=== PATIENT | male | born 1975 | race Caucasian/White ===

== ENCOUNTER → 2019-07-04 | Outpatient (CLI) | payer OTHER, SELFPAY ==
[2019-07-04 09:46] LABS: AST(SGOT) 18 U/L (15-37); Alanine Aminotransfer ALT/SGPT 36 U/L (16-61); Albumin, Serum 3.8 g/dL (3.2-5.0); Alkaline Phosphatase 74 U/L (45-117); Anion Gap 6 (5-15); BUN 18 mg/dL (7-18); BUN/Creat Ratio 18.1 RATIO (10-20); Calcium,Total 8.9 mg/dL (8.5-10.1); Chloride 109 mmol/L (98-107); Cholesterol 199 mg/dL (200); Creatinine, Serum 0.99 mg/dL (0.70-1.30); EST Glomerular Filtration Rate 86 mL/min (>60); Est Glom Filt Rate - Afr Amer 105 mL/min (>60); Globulin 3.9 g/dL (2.2-4.2); Glucose 95 mg/dL (74-106); High Density Lipoprotein 40 mg/dL; Potassium 4.4 mmol/L (3.5-5.1); Protein, Total 7.7 g/dL (6.4-8.2); Sodium Level 141 mmol/L (136-145); Triglycerides 251 mg/dL; Very Low Density Lipoprotein 50 mg/dL (5-40)
== END | disposition home or self-care (01) ==
LOC: LAB 08:25
PROVIDERS: Family Provider Family Medicine; PCP Family Medicine; Referring Provider Family Medicine; Visit Provider Family Medicine
DX: Z00.00 Encounter for general adult medical examination without abnormal findings (principal)
CPT/HCPCS: 36415; 80053; 80061

== ENCOUNTER → 2019-08-08 09:33 | Outpatient (CLI) | payer OTHER, SELFPAY ==
--- NOTE | 2019-08-08 09:40 | RAD_ITS ---
HISTORY:HEEL PAIN Calcaneus 2 views No priors Findings: No acute fracture. Small enthesophyte at the insertion of the Achilles tendon on the calcaneus RAD/Calcaneus min 2 Views IMPRESSION: No acute pathology at 0137 Reported and signed by: Sara Rahman DO Electronically Signed: Sara Rahman DO at 1:36 EDT Tel , Service support ,
== END ==
PROVIDERS: Family Provider Family Medicine; PCP Family Medicine; Referring Provider Family Medicine; Visit Provider Family Medicine
DX: M79.672 Pain in left foot (principal)
CPT/HCPCS: 73650

== ENCOUNTER → 2021-10-19 12:32 | Outpatient (CLI) | payer OTHER, SELFPAY | PROVIDERS: PCP Family Medicine; Referring Provider Family Medicine; Visit Provider Family Medicine | DX: G47.10 Hypersomnia, unspecified (principal) | CPT/HCPCS: 95806 ==

== ENCOUNTER 2021-12-04 09:00 | Outpatient (CLI) | payer OTHER, SELFPAY | END 2021-12-04 23:59 | disposition short-term general hospital (02) | LOC: SL 09:00 | PROVIDERS: PCP Family Medicine; Visit Provider Family Medicine | DX: Z00.00 Encounter for general adult medical examination without abnormal findings (principal) ==

== ENCOUNTER 2022-10-06 09:20 | Outpatient (CLI) | payer BC, SELFPAY ==
[2022-10-06 10:05] LABS: ALB/GLOB Ratio 0.9 RATIO (0.9-2.4); AST(SGOT) 43 U/L (15-37); Alanine Aminotransfer ALT/SGPT 62 U/L (16-61); Albumin, Serum 3.7 g/dL (3.2-5.0); Alkaline Phosphatase 63 U/L (45-117); Anion Gap 3 (5-15); BUN 16 mg/dL (7-18); BUN/Creat Ratio 14.3 RATIO (10-20); Calcium,Total 9.5 mg/dL (8.5-10.1); Chloride 106 mmol/L (98-107); Cholesterol 192 mg/dL (200); Creatinine, Serum 1.12 mg/dL (0.70-1.30); EST Glomerular Filtration Rate 74 mL/min (>60); Est Glom Filt Rate - Afr Amer 90 mL/min (>60); Globulin 4.1 g/dL (2.2-4.2); Glucose 119 mg/dL (74-106); High Density Lipoprotein 38 mg/dL; Potassium 4.9 mmol/L (3.5-5.1); Protein, Total 7.8 g/dL (6.4-8.2); Sodium Level 139 mmol/L (136-145); Triglycerides 331 mg/dL; Very Low Density Lipoprotein 66 mg/dL (5-40)
== END 2022-10-06 23:59 | disposition home or self-care (01) ==
LOC: LAB 09:23
PROVIDERS: PCP Family Medicine; Referring Provider Family Medicine; Visit Provider Family Medicine
DX: Z00.00 Encounter for general adult medical examination without abnormal findings (principal)
CPT/HCPCS: 36415; 80053; 80061

== ENCOUNTER → 2022-11-21 | Outpatient (CLI) | payer BC, SELFPAY ==
[2022-11-21 08:16] LABS: Hemoglobin A1c 5.8 % (3.8-5.6)
== END | disposition home or self-care (01) ==
PROVIDERS: PCP Family Medicine; Referring Provider Family Medicine; Visit Provider Family Medicine
DX: R73.01 Impaired fasting glucose (principal)
CPT/HCPCS: 36415; 83036

== ENCOUNTER 2022-12-04 07:46 | Day surgery (SDC) | payer BC, SELFPAY ==
[2022-12-04 08:05] VITALS: BP 141/88; PULSE 67; RESP 67; TEMP 36.4; O2SAT 96; BMI 37.8
[2022-12-04] MEDS: Lactated Ringers 1,000 ML 15 ML IV (08:17)
--- NOTE | 2022-12-04 09:30 | HP.PCM_ITS ---
HPI - General HPI Narrative CHASE GOTTLIEB, is a 46 M who presents for screening colonoscopy, patient has never had a colonoscopy in the past. Patient denies any abdominal pain or blood in the stool. He has no family history of colon cancer. [facility] Medical History (Updated 11/30/22 @ 11:52 by Lakeshia Ford) CPAP (continuous positive airway pressure) dependence External hemorrhoid HTN (hypertension) Injury of back Injury of head and neck Non-smoker PIO (obstructive sleep apnea) Sleep apnea Wears contact lenses Wears glasses Home Medications ascorbic acid (vitamin C) 500 mg tablet 500 mg PO DAILY 10/18/22 [History Last Taken Unknown] cholecalciferol (vitamin D3) 50 mcg (2,000 unit) capsule 50 mcg PO DAILY 10/18/22 [History Last Taken Unknown] multivitamin 1 tab PO DAILY 10/18/22 [History Last Taken Unknown] valacyclovir 500 mg tablet 500 mg PO DAILY 11/30/22 [History Last Taken Unknown] Allergy/AdvReac Type Severity Reaction Status Date / Time No Known Allergies Allergy Verified 12/04/22 08:04 Surgical History (Updated 12/04/22 @ 08:04 by Heather Martinez) H/O vasectomy History of tonsillectomy Social History Smoking Status: Never smoker Past Medical/Surgical History Planned Operation Planned Operative Procedure/s: COLONOSCOPY Previous Hospitalizations/Surgeries HX Hospitalizations: No Any Problems With Anesthesia: No You/Your Family Experience Fever (Hyperthermia) With Anes: No Cholinesterase deficiency: No Cardiovascular Hx Hypertension: No Respiratory Hx Sleep Apnea: Yes CPAP: Yes BIPAP: No Hx Respiratory Tract Infection/Cold (presently): Yes (STUFFY NOSE, NO FEVER) Result (for STOP score): Positive Smoking Status: Never smoker Neurological Does patient have nerve stimulator: No Miscellaneous Recent Exposure to Contagious Disease: No Allergies No Known Allergies Allergy (Verified 12/04/22 08:04) Discharge Is Pt Admitted From a Snf, or a Fpc: No After D/C, Where Do you Plan to Go: Return Home Vital Signs Vital Signs Vital Signs: 12/04/22 08:05 12/04/22 08:05 Temperature 97.6 F L Temperature Source Temporal Pulse Rate 67 Respiratory Rate 67 H Respiratory Pattern Normal Blood Pressure 141/88 H Blood Pressure Mean 105 Blood Pressure Source Monitor Blood Pressure Position Semi-Fowlers Blood Pressure Location Left Arm Pulse Ox 96 Oxygen Delivery Method Room Air Weight Weight: 311 lb 4.683 oz Body Mass Index (BMI) 37.8 Physical Exam Const alert and oriented x3 HEENT normocephalic Eyes PERRL Resp normal respiratory effort and normal air movement Cardio regular rate and regular rhythm GI soft to palpation, non-tender and non-distended Extremity normal to inspection Assessment & Plan Assessment/Plan (1) Encounter for screening for malignant neoplasm of colon: PLAN: I explained endoscopy in detail to the patient. I explained the risks including but not limited to stroke or heart attack with anesthesia, perforation of the GI tract, bleeding, infection. I explained that any of these could necessitate further emergency surgery. The patient understands and all questions were answered sufficiently. The patient wishes to proceed with procedure. Nj Dowell MD Pager: [facility] [address] [place] [address], [address] [place] [address] Office: Surgery Risks - Colonoscopy Risks Include but are not Limited To: Risks include but are not limited to: Bleeding, perforation requiring further surgery, inability to complete colonoscopy requiring barium enema.
[2022-12-04 09:56] VITALS: BP 110/75; BP 141/88; PULSE 69; RESP 16; TEMP 36.3; O2SAT 97
--- NOTE | 2022-12-04 09:58 | OP.COLON_ITS ---
Patient Name: Alonzo Johnson Procedure Date: 12/04/2022 9:35 AM Date of : 1975 Age: 46 Procedure: Colonoscopy Indications: Screening for colorectal malignant neoplasm Providers: Nj Dowell MD Referring MD: Nj Dowell MD Medicines: Monitored Anesthesia Care Patient Profile: This is a 46 year old male. Refer to note in patient chart for documentation of history and physical. Last Colonoscopy: none. The patient's first colonoscopy is today. Complications: No immediate complications. Procedure: Pre-Anesthesia Assessment: - Prior to the procedure, a History and Physical was performed, and patient medications and allergies were reviewed. The patient's tolerance of previous anesthesia was also reviewed. The risks and benefits of the procedure and the sedation options and risks were discussed with the patient. All questions were answered, and informed consent was obtained. Prior Anticoagulants: The patient has taken no previous anticoagulant or antiplatelet agents. After reviewing the risks and benefits, the patient was deemed in satisfactory condition to undergo the procedure. After I obtained informed consent, the scope was passed under direct vision. Throughout the procedure, the patient's blood pressure, pulse, and oxygen saturations were monitored continuously. The adult colonoscope was introduced through the anus and advanced to the cecum, identified by appendiceal orifice and ileocecal valve. The colonoscopy was performed without difficulty. The patient tolerated the procedure well. The quality of the bowel preparation was good. Scope In: 9:42:48 AM Scope Withdrawal Time 0 hours 6 minutes 4 seconds Scope Out: 9:53:22 AM Total Procedure Duration Time 0 hours 10 minutes 34 seconds Findings: The entire examined colon appeared normal on direct and retroflexion views. Impression: - The entire examined colon is normal on direct and retroflexion views. - No specimens collected. Recommendation: - Discharge patient to home. - Resume previous diet. - Continue present medications. - Repeat colonoscopy in 10 years for screening purposes. Procedure Code(s): --- Professional --- 94641, Colonoscopy, flexible; diagnostic, including collection of specimen(s) by brushing or washing, when performed (separate procedure) Diagnosis Code(s): --- Professional --- Z12.11, Encounter for screening for malignant neoplasm of colon CPT copyright 2017 [employer]. All rights reserved. The codes documented in this report are preliminary and upon wharf builder review may be revised to meet current compliance requirements. Nj Dowell MD 12/04/2022 9:57:56 AM This report has been signed electronically. Number of Addenda: 0 Note Initiated On: 12/04/2022 9:35 AM
--- NOTE | 2022-12-04 09:59 | OP.CCLET_ITS ---
12/04/2022 Taz Pollard [address] [place] [address] Re : Colonoscopy procedure for Alonzo Johnson Dear Dr. Pollard This procedure was performed on Sunday, December 04, 2022. My impressions and recommendations are as follows: Impressions : - The entire examined colon is normal on direct and retroflexion views. - No specimens collected. Recommendations : - Discharge patient to home. - Resume previous diet. - Continue present medications. - Repeat colonoscopy in 10 years for screening purposes. My findings are described in the full procedure note, which is enclosed. If I can be of further assistance, please feel free to contact me at Doctor phone number(s): , Work: . Sincerely, Nj Dowell MD 12/04/2022 9:57:56 AM This report has been signed electronically.
[2022-12-04 10:00] VITALS: BP 111/76; BP 141/88; PULSE 67; RESP 16; O2SAT 93
[2022-12-04 10:05] VITALS: BP 120/73; BP 141/88; PULSE 65; RESP 16; O2SAT 93
[2022-12-04 10:10] VITALS: BP 120/82; BP 141/88; PULSE 61; RESP 16; O2SAT 93
[2022-12-04 10:20] VITALS: BP 141/88
== END 2022-12-04 10:42 | disposition home or self-care (01) ==
LOC: EN 07:48 → AC 07:49
PROVIDERS: PCP Family Medicine; Referring Provider Family Medicine; Visit Provider Surgery
PROC: 0DJD8ZZ Inspection of Lower Intestinal Tract, Via Natural or Artificial Opening Endoscopic (ICD-10-PCS; CPT 45378; principal; 2022-12-04 08:40)
DX: Z12.11 Encounter for screening for malignant neoplasm of colon (principal); I10 Essential (primary) hypertension; G47.33 Obstructive sleep apnea (adult) (pediatric); Z99.89 Dependence on other enabling machines and devices
CPT/HCPCS: 45378; J7120; J2405

== ENCOUNTER → 2023-11-07 | Outpatient (CLI) | payer BC, SELFPAY ==
[2023-11-07 17:48] LABS: Absolute Neutrophil Count 3.7 X10^3/uL (2.0-7.7); Basophil# 0.05 X10^3/uL; Basophil% 0.8 % (0-1); Eosinophil# 0.18 X10^3/uL; Eosinophils% 2.8 % (0-5); Hematocrit 47.7 % (40-54); Hemoglobin 15.9 g/dL (13.0-16.5); Lymphocyte % 29.5 % (19-41); Mean Corp Hgb Conc 33.3 g/dL (32-36); Mean Corpuscular Volume 86.9 fL (80-94); Monocyte# 0.59 X10^3/uL; Monocyte% 9.2 % (0-10); NRBC Flagged by Analyzer 0 % (0-5); Neutrophil # 3.67 X10^3/uL (2.7-7.7); Neutrophil % 57.1 % (47-70); Platelet Count 225 K/mm3 (150-450); RBC Distribution Width CV 12.3 % (11.6-14.6); RBC Distribution Width SD 38.7 fl (35.1-43.9); Red Blood Count 5.49 M/mm3 (4.6-6.2); White Blood Count 6.4 K/mm3 (4.4-11.0)
[2023-11-07 18:34] LABS: ALB/GLOB Ratio 0.9 RATIO (0.9-2.4); AST(SGOT) 39 U/L (15-37); Alanine Aminotransfer ALT/SGPT 72 U/L (16-61); Albumin, Serum 3.8 g/dL (3.2-5.0); Alkaline Phosphatase 66 U/L (45-117); Anion Gap 8 (5-15); BUN 15 mg/dL (7-18); BUN/Creat Ratio 16.4 RATIO (10-20); Chloride 105 mmol/L (98-107); Cholesterol 202 mg/dL (200); Creatinine, Serum 0.91 mg/dL (0.70-1.30); EST Glomerular Filtration Rate 93 mL/min (>60); Est Glom Filt Rate - Afr Amer 113 mL/min (>60); Globulin 4.1 g/dL (2.2-4.2); Glucose 94 mg/dL (74-106); High Density Lipoprotein 38 mg/dL; Potassium 4.3 mmol/L (3.5-5.1); Protein, Total 7.9 g/dL (6.4-8.2); Sodium Level 139 mmol/L (136-145); Triglycerides 306 mg/dL; Very Low Density Lipoprotein 61 mg/dL (5-40)
== END | disposition home or self-care (01) ==
LOC: BFHLAB 14:25
PROVIDERS: PCP Family Medicine; Visit Provider Family Medicine
DX: Z00.00 Encounter for general adult medical examination without abnormal findings (principal); R53.83 Other fatigue
CPT/HCPCS: 36415; 80053; 80061; 84403; 85025

== ENCOUNTER → 2024-04-15 | Outpatient (CLI) | payer BC, SELFPAY ==
--- NOTE | 2024-04-15 14:46 | NEURO_ITS ---
NCS and/or EMG Patient Report Ordering Doctor: Roseann Ferguson DATE OF SERVICE: 04/15/24 Alonzo presents With complaints of pain and numbness in the left arm. He reports pain radiates into the fourth and fifth digits of the left hand with numbness and tingling. Electrodiagnostic findings: Left median motor nerve demonstrates normal distal latency, amplitude and conduction velocity. Left ulnar motor nerve demonstrates normal distal latency and amplitude with a greater than 25% drop in conduction across the left elbow. Decreased left ulnar sensory amplitudes at digit 5 and the palm. Normal median sensory response.
--- NOTE | 2024-04-15 14:46 | NEURO ---
NCS and/or EMG Patient Report Ordering Doctor: Roseann Ferguson DATE OF SERVICE: 04/15/24 Alonzo presents with complaints of pain and numbness in the left arm. He reports pain radiates into the fourth and fifth digits of the left hand with numbness and tingling. He has neck and left scapular pain. Electrodiagnostic findings: Left median motor nerve demonstrates normal distal latency, amplitude and conduction velocity. Left ulnar motor nerve demonstrates normal distal latency and amplitude with an approximately 25% drop in conduction across the left elbow. Decreased left ulnar sensory amplitudes at digit 5 and the palm. Normal median sensory response.Needle EMG testing was performed in the left upper limb. 1+ fibrillations were noted in the left flexor carpi ulnarisLeft lower cervical paraspinals. 1+ positive sharp waves were noted in the left triceps. Motor unit action potentials were normal amplitude and duration. Electrodiagnostic impression: This is an abnormal study in the left upper limb 1. Electrodiagnostic findings are suggestive of acute left C7 radiculopathy. Consider correlation with cervical spine MRI to evaluate for underlying disc herniation or stenosis. 2. 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 Multi Select Codes Neurology Neurology Interp Codes: 82206-25 Musc test done w/n test comp (interp) and 83802-94 Nrv cndj test 7-8 studies (interp)
== END | disposition home or self-care (01) ==
PROVIDERS: PCP Family Medicine; Referring Provider Physician Assistant Surgical; Visit Provider Physician Assistant Surgical
DX: R20.2 Paresthesia of skin (principal)
CPT/HCPCS: 95886; 95910

== ENCOUNTER → 2025-01-23 | Outpatient (CLI) | payer BC, SELFPAY ==
[2025-01-23 09:59] LABS: Absolute Lymphocyte Count 2.06 X10^3/uL (0.83-4.51); Absolute Neutrophil Count 3.3 X10^3/uL (2.0-7.7); Basophil# 0.05 X10^3/uL; Basophil% 0.8 % (0-1); Eosinophil# 0.17 X10^3/uL; Eosinophils% 2.8 % (0-5); Hematocrit 45.5 % (40-54); Hemoglobin 16.1 g/dL (13.0-16.5); Lymphocyte # 2.06 X10^3/ul (0.83-4.51); Lymphocyte % 33.5 % (19-41); Mean Corp Hgb Conc 35.4 g/dL (32-36); Mean Corpuscular Hgb 30.4 pg (27.0-32.0); Mean Corpuscular Volume 85.8 fL (80-94); Mean Platelet Vol. 9.9 fl (6.2-12.0); Monocyte# 0.48 X10^3/uL; Monocyte% 7.8 % (0-10); NRBC Flagged by Analyzer 0 % (0-5); Neutrophil # 3.33 X10^3/uL (2.7-7.7); Neutrophil % 54.1 % (47-70); Platelet Count 212 K/mm3 (150-450); RBC Distribution Width CV 11.9 % (11.6-14.6); RBC Distribution Width SD 37.4 fl (35.1-43.9); White Blood Count 6.2 K/mm3 (4.4-11.0)
[2025-01-23 10:24] LABS: ALB/GLOB Ratio 1.3 RATIO (0.9-2.4); AST(SGOT) 49 U/L (<=37); Alanine Aminotransfer ALT/SGPT 61 U/L (<=46); Albumin, Serum 4.2 g/dL (3.5-5.0); Alkaline Phosphatase 66 U/L (40-129); Anion Gap 14 (5-15); BUN 13 mg/dL (4-19); Calcium,Total 9.3 mg/dL (7.6-11.0); Chloride 104 mmol/L (98-108); Cholesterol 192 mg/dL (<=200); Creatinine, Serum 0.87 mg/dL (0.70-1.20); EST Glomerular Filtration Rate 104 (>60); Globulin 3.1 g/dL (2.2-4.2); Glucose 119 mg/dL (70-99); High Density Lipoprotein 38 mg/dL; Low Density Lipoprotein Calc. 108 mg/dL; PSA,Total - Annual Screen 1.71 ng/mL (0.02-4.00); Potassium 4.5 mmol/L (3.3-5.1); Protein, Total 7.4 g/dL (5.9-8.4); Sodium Level 139 mmol/L (133-145); Total Bilirubin 0.31 mg/dL (0.00-1.30); Triglycerides 229 mg/dL; Very Low Density Lipoprotein 46 mg/dL (5-40); cholesterol:hdl ratio screen 5.01
== END | disposition home or self-care (01) ==
PROVIDERS: PCP Family Medicine; Referring Provider Family Medicine; Visit Provider Family Medicine
DX: Z00.00 Encounter for general adult medical examination without abnormal findings (principal); Z12.5 Encounter for screening for malignant neoplasm of prostate; R73.01 Impaired fasting glucose
CPT/HCPCS: 36415; 80053; 80061; 83036; 84153; 85025; G0103